=== PATIENT | female | born 1990 ===

== ENCOUNTER 2016-11-08 21:24 | Emergency (ER) | payer OTHER ==
[2016-11-08] MEDS ORDERED: IOPAMIDOL 300 (61%) 100 ML VIAL IV ONE (21:25)
[2016-11-08 22:24] LABS: SPECIFIC GRAVITY 1.015 (1.001-1.030); URINE BILIRUBIN NEGATIVE (NEGATIVE); URINE BLOOD NEGATIVE (NEGATIVE); URINE GLUCOSE (UA) NEGATIVE (NEGATIVE); URINE LEUKOCYTE ESTERASE NEGATIVE (NEGATIVE); URINE NITRITE NEGATIVE (NEGATIVE); URINE PROTEIN NEGATIVE (NEGATIVE); URINE UROBILINOGEN NORMAL (0-1 mg/dl)
[2016-11-08 22:26] LABS: ABSOLUTE NEUTROPHIL COUNT 7.4 K/mm3 (1.8-7.7); BASO # 0.1 K/mm3 (0.0-0.2); BASO % 0.4 % (0.2-1.0); EOS # 0.3 (0.0-0.5); EOS % 2.5 % (0.9-2.9); HEMATOCRIT 42.5 % (37.0-47.0); HEMOGLOBIN 14.7 gm/l (12.0-16.0); IMM NEUT # 0.1 K/mm3 (0-0.2); IMM NEUT% 0.5 % (0-1); LYMPH # 4.4 (1.0-4.8); LYMPH % 33.2 % (15-45); MEAN CELL VOLUME 92.8 fl (81.0-99.0); MEAN CORPUSCULAR HEMOGLOBIN 32.1 pg (27.0-31.0); MEAN CORPUSCULAR HGB CONC 34.6 g/dl (33.0-37.0); MEAN PLATELET VOLUME 12.1 fl (7.4-10.4); MONO % 7.9 % (4-12); NEUT % 55.5 % (43-75); PLATELET COUNT 226 K/mm3 (130-400); RED CELL DISTRIBUTION WIDTH 11.6 % (11.5-14.5); URINE APPEARANCE CLEAR; URINE COLOR YELLOW
[2016-11-08 22:28] LABS: HCG,QUALITATIVE URINE NEGATIVE
[2016-11-09 00:25] LABS: ALB/GLOB RATIO 1.4 (>1.0); ALBUMIN 4.1 gm/dL (3.5-5.7); CALCIUM 9.6 mg/dL (8.6-10.3)
[2016-11-09] MEDS ORDERED: ONDANSETRON 4 MG/2ML 2 ML VIAL ONE (00:27)
[2016-11-09] MEDS ORDERED: HYDROMORPHONE HCL 1 MG/ML SYRINGE ONE (00:27)
--- NOTE | 2016-11-09 08:06 | CT ---
Exam Type: ABD/PELVIS W/ CON Date and Time: 11/09/2016 12:31 AM Clinical information: Right lower quadrant pain for 2 days Comparison: CT abdomen and pelvis 08/23/2008 Technique: Contiguous axial 4 mm images were obtained from the lung bases through the pelvis after the uneventful IV administration of 100 cc of [id number]. Sagittal and coronal reformations with high resolution lung algorithm images were also obtained at this time. CT DI: 9.8 DLP 515.4 FINDINGS: Lung base : Dependent and atelectatic changes are present predominantly at the right base. Lungs are otherwise clear. Visualized heart:There is no pericardial effusion. LIVER: within normal limits. BILE DUCTS: normal caliber. GALLBLADDER: No calcified gallstones. Normal caliber wall. PANCREAS: within normal limits. SPLEEN: within normal limits. ADRENALS: within normal limits. KIDNEYS: within normal limits. Stomach and small BOWEL: Normal caliber. Large bowel: Air and stool are noted within the large bowel. Appendix is normal. LYMPH NODES: No enlarged mesenteric lymph nodes. PERITONEUM: no ascites or free air, no fluid collection. VESSELS: within normal limits RETROPERITONEUM: within normal limits. ABDOMINAL WALL: Fat-containing umbilical hernia. Bladder: Normal. Uterus and adnexa: Unremarkable. BONES: within normal limits. IMPRESSION: No acute inflammatory process is noted within the abdomen or pelvis. No specific cause for the patient's stated right lower quadrant pain. Close clinical and radiographic follow-up recommended. Preliminary report was provided by [facility] at approximately 0145 hours on 11/09/2016.
== END 2016-11-09 02:17 | disposition home or self-care (01) ==
LOC: ED 21:24 → SUPCPDRO 21:24 → ED 11-09 02:17
DX: R10.9 Unspecified abdominal pain (principal)
CPT/HCPCS: 81025; 85025; 80053; 81003; 74177; 96375; 99284 ×2; 96374; J1170; J2405; Q9967